=== PATIENT | male | born 1950 | race Caucasian/White ===

== ENCOUNTER 2016-06-01 10:58 | Emergency (ER) | payer OTHER, MEDICARE ==
[~2016-06-01] VITALS: Ht 167.6 cm; Wt 59.0 kg
[~2016-06-01 10:58] MED LIST: ACID CONTROL150 MG PO; ALBUTEROL0.63 MG/3 INH/SOL; ALLEGRA ALLERG180 M1 PO; AMOXIL500 MG PO; ASPIRIN EC81 M1 PO; ATIVAN 2 MG. TAB2 MG PO; AUGMENTIN 875 M1 TAB PO; CALCIUM600 M2 PO; CHONDROITIN SUL PO; DEBROX15 ML OTIC; DESMOPRESSIN A0.1 M1 PO; DESMOPRESSIN0.2 MG PO; FLOMAX0.4 M1 PO; FOSAMAX70 M1 PO; FUROSEMIDE20 M1 PO; GLUCOSAMINE500 MG PO; K-SOL20 MEQ/15 PO; KIONEX15 GM/60 M PO; LISINOPRIL10 M1 PO; NON-ASPIRIN325 MG PO; OMEPRAZOLE D/R20 MG PO; PROAIR HFA8.5 GM INH; SENNA8.6 M3 PO; VIBRAMYCIN 100100 MG PO; VITAMIN C500 M6 PO; [UNRECOGNIZED DRUG - OTHER] PO; [UNRECOGNIZED DRUG - OTHER] PO
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
[2016-06-01] MEDS ORDERED: CLONAZEPAM0.5 M2 PO (11:19)
[2016-06-01] MEDS ORDERED: ZYPREXA2.5 M1 PO (11:21)
--- NOTE | 2016-06-01 12:41 | CT SCAN REPORT ---
EXAMINATION: CT HEAD WITHOUT CONTRAST CLINICAL INFORMATION: Fall. Hit head. COMPARISON: Previous head CT May 2015 TECHNIQUE: Contiguous axial imaging was performed from the skull base to vertex without intravenous administration of contrast. Exam is limited due to motion. DLP: 439 mGy-cm FINDINGS: Exam is very limited due to motion artifact. There is no evidence for an extra-axial collection. There is no evidence for intra or extra-axial hemorrhage. The ventricles and extra-axial CSF spaces are appropriate. No mass or infarct is seen. No skull fracture is appreciated. IMPRESSION: Very limited exam due to motion artifact. No acute finding is seen. Repeat exam when the patient can stay still should be considered if clinically indicated.
[2016-06-01 13:53] VITALS: BP 135/73
== END 2016-06-01 16:17 ==
LOC: ERH 10:58
DX: S09.90XA Unspecified injury of head, initial encounter (principal); S01.81XA Laceration without foreign body of other part of head, initial encounter; W19.XXXA Unspecified fall, initial encounter
CPT/HCPCS: 96361; 96372; 96374; 96375; J1200; J7040

== ENCOUNTER 2016-06-09 16:50 | Emergency (ER) | payer OTHER, MEDICARE ==
[~2016-06-09 16:50] MED LIST changes: +CLONAZEPAM0.5 M2 PO; +ZYPREXA2.5 M1 PO
[2016-06-09 17:15] VITALS: BP 144/78
--- NOTE | 2016-06-09 17:31 | ED ANIMAL BITE/WOUND CHECK ---
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 Exam Limitations: unable to give history, mentally disabled Vital Signs & Intake/Output Vital Signs & Intake/Output Vital Signs Date Time Temp Pulse Resp B/P Pulse O2 O2 Flow FiO2 Ox Delivery Rate 06/09 1715 98.2 80 144/78 Allergies Coded Allergies: cephalexin (From KEFLEX) (Intermediate, RASH/HIVES 12/03/15) Reconcile Medications Acetaminophen (Non-Aspirin) 325 MG TABLET 2 TAB PO Q4 HRS NEEDED PRN PAIN (Reported) Albuterol Sulfate (Proair Hfa) 90 MCG HFA.AER.AD 1 PUF INH Q4P PRN WHEEZING ( Reported) Alendronate Sodium (Fosamax) 70 MG TABLET 1 TAB PO QMON BONE (Reported) in the morning, at least 30 minutes before the first food, beverage, or medication of the day Ascorbate Calcium (Vitamin C) 500 MG TABLET 1 TAB PO DAILY SUPPLEMENT ( Reported) Aspirin (Ecotrin*) 81 MG TABLET.DR 1 TAB PO QPM HEART HEALTH (Reported) Calcium Carbonate (Calcium) 600 MG (1,500 MG) TABLET 1 TAB PO TID SUPPLEMENT (Reported) Carbamide Peroxide (Debrox) 6.5 % DROPS 6 DROP OTIC BID EAR WAX (Reported) Clonazepam 0.5 MG TABLET 1 TAB PO BID ANXIETY (Reported) Desmopressin Acetate 0.1 MG TABLET 1 TAB PO BID UNKNOWN (Reported) Ergocalciferol (Vitamin D2) (Calciferol) 8,000 UNIT/ML DROPS 4 DROP PO DAILY SUPPLEMENT (Reported) Fexofenadine HCl (Petty Allergy) 180 MG TABLET 1 TAB PO 0700 ALLERGIES ( Reported) Furosemide 20 MG TABLET 1 TAB PO DAILY PRN EDEMA (Reported) Lisinopril 10 MG TABLET 1 TAB PO DAILY BP (Reported) Olanzapine (Zyprexa) 2.5 MG TABLET 1 TAB PO QPM MENTAL HEALTH (Reported) Ranitidine HCl (Acid Control) 150 MG TABLET 1 TAB PO BID ACID REFLUX ( Reported) Sennosides (Senna) 8.6 MG TABLET 1 TAB PO BID PRN CONSTIPATION (Reported) Tamsulosin HCl (Flomax) 0.4 MG CAP.ER.24H 1 CAP PO 0700 UNKNOWN (Reported) Triage Note: PER PT HERE FOR SUTURE REMOVAL PLACED ON 06/01. Triage Nurses Notes Reviewed? yes HPI: Abhinav is a 65-year-old male with multiple medical problems brought into the emergency department today by his caregiver for wound reevaluation. Patient had 6 sutures placed on June 01. Patient returns here today to have the stents sutures removed. Consulting Group Analyst denies any fevers, chills, erythema, hives or other signs of swelling or infection. Patient unable to provide any history given his severe MR. Past History Travel History Traveled to [place] past 21 day No Medical History Any Pertinent Medical History? 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 No Review of Systems Review of Systems Constitutional: Reports: see HPI. Comments Unable to obtain any review of systems given the patient's profound MR and nonverbal state. Physical Exam Physical Exam General Appearance: well developed/nourished, no apparent distress, alert Head: well-healed laceration above right eyebrow. Sutures in place. After the removal of the sutures, wound is well appearing without evidence of erythema or swelling. Edges are well approximated without any evidence of dehiscence Eyes: Bilateral: normal appearance, PERRL, EOMI. Neck: normal inspection, supple Respiratory: normal breath sounds, chest non-tender, no respiratory distress Cardiovascular: regular rate/rhythm Extremities: normal range of motion Neurologic/Psych: awake, aphasia Skin: intact Progress Differential Diagnosis: cellulitis, wound infection, wound dishiscense Plan of Care: 6 he 5-year-old male presenting to the ED for suture removal. 6 sutures are removed from above his right eyebrow. Patient tolerated procedure well without any issues. No evidence of infection on her surrounding the wound. Patient discharged back to care facility with caregiver. Departure Departure Time of Disposition: 1727 Disposition: HOME OR SELF CARE Condition: Stable Clinical Impression Primary Impression: Visit for suture removal Referrals: LILLIAM OLIVEROS MD (PCP/Family) Additional Instructions: Keep the wound dry and clean. If you have evidence of infection, such as redness, swelling, or pus, return to the emergency department for evaluation. Departure Forms: Customer Survey General Discharge Information
== END 2016-06-09 17:35 ==
LOC: ERH 16:50
DX: S01.111A Laceration without foreign body of right eyelid and periocular area, initial encounter (principal); X58.XXXA Exposure to other specified factors, initial encounter; Y92.9 Unspecified place or not applicable; Y93.9 Activity, unspecified
CPT/HCPCS: 99281

== ENCOUNTER 2017-07-29 19:00 | Emergency (ER) | payer OTHER, MEDICARE ==
[~2017-07-29] VITALS: Ht 170.2 cm; Wt 62.6 kg
--- NOTE | 2017-07-29 22:24 | ED ANKLE/FOOT INJURY COMPLAINT ---
History of Present Illness General Chief Complaint: Suture Removal/Wound Recheck Stated Complaint: COMPONENT ENGINEER STATES "HE HAS A GREEN WOUND" RT FOOT Source: patient, old records, caregiver Exam Limitations: physical impairment Vital Signs & Intake/Output Vital Signs & Intake/Output . Allergies Coded Allergies: cephalexin (From KEFLEX) (Intermediate, RASH/HIVES 12/03/15) Reconcile Medications Acetaminophen (Non-Aspirin) 325 MG TABLET 2 TAB PO Q4 HRS NEEDED PRN PAIN (Reported) Albuterol Sulfate (Proair Hfa) 90 MCG HFA.AER.AD 1 PUF INH Q4P PRN WHEEZING ( Reported) Alendronate Sodium (Fosamax) 70 MG TABLET 1 TAB PO QMON BONE (Reported) in the morning, at least 30 minutes before the first food, beverage, or medication of the day Ascorbate Calcium (Vitamin C) 500 MG TABLET 1 TAB PO DAILY SUPPLEMENT ( Reported) Aspirin (Ecotrin*) 81 MG TABLET.DR 1 TAB PO QPM HEART HEALTH (Reported) Calcium Carbonate (Calcium) 600 MG (1,500 MG) TABLET 1 TAB PO TID SUPPLEMENT (Reported) Carbamide Peroxide (Debrox) 6.5 % DROPS 6 DROP OTIC BID EAR WAX (Reported) Clonazepam 0.5 MG TABLET 1 TAB PO BID ANXIETY (Reported) Desmopressin Acetate 0.1 MG TABLET 1 TAB PO BID UNKNOWN (Reported) Ergocalciferol (Vitamin D2) (Calciferol) 8,000 UNIT/ML DROPS 4 DROP PO DAILY SUPPLEMENT (Reported) Fexofenadine HCl (Petty Allergy) 180 MG TABLET 1 TAB PO 0700 ALLERGIES ( Reported) Furosemide 20 MG TABLET 1 TAB PO DAILY PRN EDEMA (Reported) Lisinopril 10 MG TABLET 1 TAB PO DAILY BP (Reported) Olanzapine (Zyprexa) 2.5 MG TABLET 1 TAB PO QPM MENTAL HEALTH (Reported) Ranitidine HCl (Acid Control) 150 MG TABLET 1 TAB PO BID ACID REFLUX ( Reported) Sennosides (Senna) 8.6 MG TABLET 1 TAB PO BID PRN CONSTIPATION (Reported) Tamsulosin HCl (Flomax) 0.4 MG CAP.ER.24H 1 CAP PO 0700 UNKNOWN (Reported) Triage Note: PT FROM HOME C/O OF ULCER TO THE TOP OF RIGHT FOOT PER GLOBE CLEANER WITH PT. PT IS FROM A CORRECTION IN [place] WITH HX OF MR. PTS AIDE WITH HIM STATES THAT SHE GAVE PT A BATH TODAY AND NOTICED A QUARTER SIZE OPEN ULCER TO THE TOP OF PTS RIGHT FOOT. PT IS AMBULATORY WITH WALKER. UNABLE TO OBTAIN VITALS DUE TO PT CONTINUALLY MOVING. NEED TO OBTAIN IN ROOM. Triage Nurses Notes Reviewed? yes Occurred: this afternoon Duration: hour(s):, constant, continues in ED Timing: recent history Severity: mild Pain/Injury Location: Right: Foot. Method of Injury: unknown No Modifying Factors: none Associated Symptoms: redness HPI: Prior to admission [facility] staff noted wound to the top of his right foot. There was no reported fever chills nausea vomiting diarrhea abdominal pain chest pain shortness breath headache dysuria bleeding. Past History Travel History Traveled to [place] past 21 day No Medical History Any Pertinent Medical History? 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 No Review of Systems Review of Systems Constitutional: Reports: no symptoms. EENTM: Reports: no symptoms. Respiratory: Reports: no symptoms. Cardiovascular: Reports: no symptoms. GI: Reports: no symptoms. Genitourinary: Reports: no symptoms. Musculoskeletal: Reports: no symptoms. Skin: Reports: see HPI, rash. Neurological/Psychological: Reports: no symptoms. Hematologic/Endocrine: Reports: no symptoms. Immunologic/Allergic: Reports: no symptoms. All Other Systems: Reviewed and Negative Physical Exam Physical Exam General Appearance: well developed/nourished, mild distress Head: atraumatic Eyes: Bilateral: PERRL, EOMI. Ears, Nose, Throat: normal pharynx, normal ENT inspection, hearing grossly normal Neck: normal inspection, supple Cardiovascular/Respiratory: regular rate/rhythm Back: normal inspection Leg/Knee/Thigh Left: normal range of motion, normal inspection Leg/Knee/Thigh Right: normal range of motion, normal inspection Ankle Left: normal inspection, normal range of motion Ankle Right: normal inspection, normal range of motion Foot Left: normal inspection, normal range of motion Foot Right: normal range of motion, erythema, soft tissue tenderness, 2 cm area of erythema with central ulcer without discharge and inflammation the dorsum of right foot proximal first metatarsal Reflexes: 2+: knee (R), knee (L). Neuro/Vascular: normal motor function, normal sensation Tendon: normal tendon function Psychiatric: awake, alert Skin: intact, normal color, warm/dry Progress Differential Diagnosis: contusion, pressure ulcer Plan of Care: Local wound care with padding of footware Departure Departure Time of Disposition: 2223 Disposition: HOME OR SELF CARE Condition: Stable Clinical Impression Primary Impression: Pressure ulcer of right foot Referrals: Shamika GOMEZ,Bolivar Toney MD,Hector (PCP/Family) Departure Forms: Customer Survey General Discharge Information
== END 2017-07-29 22:38 ==
LOC: ERH 19:00
DX: L89.899 Pressure ulcer of other site, unspecified stage (principal)